=== PATIENT | male | born 2000 ===

== ENCOUNTER → 2025-03-03 09:50 | Outpatient (BNV) | payer OTHER, SELFPAY | PROVIDERS: Visit Provider Internal Medicine | DX: R55 Syncope and collapse (principal) | CPT/HCPCS: 93244 ==

== ENCOUNTER → 2025-03-03 14:30 | Outpatient (REF) | payer OTHER, SELFPAY ==
--- NOTE | 2025-03-03 | HM_ITS ---
* Total monitoring time 3 days. * Underlying rhythm is sinus with an average rate of 64/Min. * No significant supraventricular or ventricular ectopy. * No significant tachycardia episodes. * No significant pauses or AV blocks. * Patient marker associated with sinus rhythm. MTDD
== END ==
LOC: HO.CARD 14:30
PROVIDERS: Visit Provider Family Medicine
DX: R00.2 Palpitations (principal)
CPT/HCPCS: 93242